=== PATIENT | female | born 1955 | race Caucasian/White ===

== ENCOUNTER → 2017-02-22 | Day surgery (SDC) | payer OTHER ==
[~2017-02-22] MED LIST: CALCIUM 500 + D1 TAB PO; CHOLESTEROL MED; FLEXERIL PO; HYDROCODONE BITA5 GM PO; HYDROCODONE-APA1 T33 PO; IBUPROFEN800 MG PO; LIPITOR PO; ZOCOR PO; [UNRECOGNIZED DRUG - OTHER]; [UNRECOGNIZED DRUG - OTHER]
--- NOTE | ~2017-02-22 | OR ---
Unit #: [id number] #: [id number] Patient: TIFFANI HEART [id number] [address] [address] [id number] O MR#: [id number] NAME: TIFFANI HEART ROOM: Date of Procedure: 02/22/2017 Admission Date: 02/22/2017 Surgeon: Matteo Mendenhall M.D. : 1955 Attending Physician: Matteo Mendenhall M.D. Referring Physician: Matteo Mendenhall M.D. Primary Care Physician: Terry Dash M.D. PROCEDURE OPERATIVE NOTE PROCEDURES PERFORMED Colonoscopy. PREOP DIAGNOSIS Screening colonoscopy. POSTOP DIAGNOSES Ascending colon lipoma, diverticular disease, internal hemorrhoids. ANESTHESIA Monitored anesthesia care. ENDOSCOPIST Matteo Mendenhall M.D. DESCRIPTION OF PROCEDURE After adequate explanation of the risks, benefits and alternatives of the procedure, an informed consent was obtained from the patient. The patient was brought to the Endoscopy Suite. Intravenous sedation was administered. The patient was placed in the left lateral position. The colonoscope was introduced into the rectum and advanced to the cecum without difficulty. Once in the cecum, the anatomic landmarks were identified very well. The ileocecal valve was examined. The appendiceal orifice was examined. The scope was slowly withdrawn with the findings as noted in the next section. Adequate mucosal visualization of the colonic mucosa was done upon slow withdrawal. The scope was slowly withdrawn into the rectum and a retroflexed view was also obtained. The scope was withdrawn. The patient tolerated the procedure very well. FINDINGS Cecum: Normal. Ileocecal valve - Normal. Appendiceal orifice- Normal. Ascending colon - Small lipoma noted. Transverse colon - Normal. Descending colon - Scattered diverticula. Sigmoid colon - scattered diverticula. Unit #: [id number] #: [id number] Patient: TIFFANI HEART Rectum - Nonbleeding internal hemorrhoids. ASSESSMENT AND PLAN The patient is a 61-year-old female who presented for screening colonoscopy. No evidence of diverticular disease. Incidental ascending colon lipoma and internal hemorrhoids. She will be encouraged to increase fiber intake and follow up in the office as needed. Dictated by... Heather Maravilla/katiana TD: 02/22/2017 14:58 JOB #: [id number] PROCEDURE OPERATIVE NOTE Page 1 of 1 X Matteo Mendenhall MD X PROCEDURE OPERATIVE NOTE
== END | disposition home or self-care (01) ==
LOC: COPS 10:23
PROVIDERS: Internal Medicine Gastroenterology
PROC: 0DJD8ZZ Inspection of Lower Intestinal Tract, Via Natural or Artificial Opening Endoscopic (ICD-10-PCS; principal; 2017-02-22 12:00)
DX: Z12.11 Encounter for screening for malignant neoplasm of colon (principal); D17.5 Benign lipomatous neoplasm of intra-abdominal organs; K57.30 Diverticulosis of large intestine without perforation or abscess without bleeding; K64.8 Other hemorrhoids; M81.0 Age-related osteoporosis without current pathological fracture; Z79.899 Other long term (current) drug therapy; Z87.442 Personal history of urinary calculi; Z90.710 Acquired absence of both cervix and uterus; Z98.890 Other specified postprocedural states; Z88.0 Allergy status to penicillin; Z88.1 Allergy status to other antibiotic agents
CPT/HCPCS: J2250

== ENCOUNTER 2017-06-07 10:42 | Emergency (ER) | payer SELFPAY ==
--- NOTE | ~2017-06-07 | CR111 ---
[facility] A Service of [facility] & [facility] RADIOLOGY TEXT RESULTS PATIENT: TIFFANI HEART LOCATION: CFTX : 51 UNIT #: [id number] AGE: [address]: Kerri Robles SEX: F ORDER DR: [id number] [facility] [address] [facility]. [place], [place] [address] [id number] E MR#: [id number] Acc #: [id number] NAME: TIFFANI HEART : 1955 SEX: F STUDY DATE/TIME: 06/07/2017 1124 UNIT: CFSD ROOM: STUDY DESCRIPTION: CR Finger 2 View 3rd Rt Attending Physician: Kerri Robles Pa-C Ordering Physician: Er [facility] Primary Care Physician: Terry Dash M.D. MEDICAL IMAGING REPORT This report is preliminary unless electronic signature is present EXAM Right third finger 06/07/2017 1124 hours HISTORY Patient smashed finger in car door today. Pain with laceration. COMPARISON None. FINDINGS AP, lateral and oblique views of the third finger demonstrate apparent soft tissue injury adjacent to the PIP joint dorsally. There is no foreign body or fracture. 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 IMPRESSION No fracture, dislocation or foreign body. 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 Dictated by... Layne Landa M.D. THIS IS AN ELECTRONICALLY VERIFIED REPORT Layne Landa M.D. at 06/08/2017 9:29 AM Jese TD: 06/07/2017 15:50 JOB #: [id number] MEDICAL IMAGING REPORT Page 1 of 1 COPY
== END 2017-06-07 12:25 | disposition home or self-care (01) ==
LOC: CED 10:42 → CFTX 10:42
DX: S61.212A Laceration without foreign body of right middle finger without damage to nail, initial encounter (principal); Z23 Encounter for immunization; Z88.0 Allergy status to penicillin; Z88.1 Allergy status to other antibiotic agents; Z91.09 Other allergy status, other than to drugs and biological substances; W23.0XXA Caught, crushed, jammed, or pinched between moving objects, initial encounter; Y92.009 Unspecified place in unspecified non-institutional (private) residence as the place of occurrence of the external cause
CPT/HCPCS: 29130; 73140; 90471; 90715; 99283